=== PATIENT | male | born 1980 | race Caucasian/White ===

== ENCOUNTER 2018-09-27 04:45 | Emergency (ER) | payer SELFPAY ==
[~2018-09-27] VITALS: Ht 182.9 cm; Wt 84.1 kg
[2018-09-27 04:47] VITALS: BP 107/70
[2018-09-27] MEDS ORDERED: ALBU18HF2 INH (04:51)
[2018-09-27] MEDS ORDERED: AZIT250T2 PO (04:51)
[2018-09-27] MEDS ORDERED: PRED20TA PO (04:51)
== END 2018-09-27 05:30 | disposition home or self-care (01) ==
LOC: ER 04:45
DX: J20.9 Acute bronchitis, unspecified (principal); Z79.899 Other long term (current) drug therapy; Z59.0 Homelessness; Z56.0 Unemployment, unspecified
CPT/HCPCS: 99283